=== PATIENT | female | born 1990 | race Two or more races ===

== ENCOUNTER 2025-06-05 23:50 | Emergency (ER) | payer MEDICAID, SELFPAY ==
[2025-06-05 23:50] VITALS: BMI 33.5
[2025-06-06 00:09] VITALS: BP 148/91; PULSE 90; RESP 20; TEMP 36.4; O2SAT 97
[2025-06-06] MEDS: ACETAMINOPHEN 500 MG TABLET PO (01:03)
[2025-06-06] MEDS: FAMOTIDINE 20 MG TABLET 40 MG PO (01:04)
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
== END 2025-06-06 02:30 | disposition home or self-care (01) ==
LOC: SERX 06-06 02:17
PROVIDERS: Emergency Provider Emergency Medicine; PCP Family Medicine
DX: O99.341 Other mental disorders complicating pregnancy, first trimester (principal); F43.0 Acute stress reaction; F41.1 Generalized anxiety disorder; Z3A.01 Less than 8 weeks gestation of pregnancy
CPT/HCPCS: 99281; A9270